=== PATIENT | male | born 1995 | race African-American/Black ===

== ENCOUNTER 2016-12-12 13:35 | Emergency (ER) | payer BC ==
[2016-12-12] MEDS ORDERED: DOXYCYCLINE HYCLATE 100 MG TABLET PO ONE (15:38)
--- NOTE | 2016-12-12 16:22 | ER Document Report ---
HPI - HPI Patient complains to provider of: tremor Onset/Duration: Gradual Quality of pain: No pain Pain Level: 0 Context: testing for lyme disease, bit by a tic 1 year ago with rash tremor in both hands Associated Symptoms: None Exacerbated by: Denies Relieved by: Denies - DERM Skin Color: Normal Past Medical History - Social History Smoking Status: Never Smoker Chew tobacco use (# tins/day): No Frequency of alcohol use: None Drug Abuse: None Family History: Reviewed & Not Pertinent Patient has suicidal ideation: No Patient has homicidal ideation: No - Past Medical History Cardiac Medical History: Denies: Hx Heart Attack, Hx Hypertension Pulmonary Medical History: Denies: Hx Asthma Neurological Medical History: Denies: Hx Cerebrovascular Accident, Hx Seizures Renal/ Medical History: Denies: Hx Peritoneal Dialysis GI Medical History: Denies: Hx Hepatitis, Hx Hiatal Hernia, Hx Ulcer Infectious Medical History: Denies: Hx Hepatitis Past Surgical History: Reports: Hx Tonsillectomy. Denies: Hx Open Heart Surgery , Hx Pacemaker Vertical Provider Document - CONSTITUTIONAL Agree With Documented VS: Yes Exam Limitations: No Limitations General Appearance: WD/WN, No Apparent Distress - INFECTION CONTROL TRAVEL OUTSIDE OF THE [place] IN LAST 30 DAYS: No - RESPIRATORY Respiratory: Breath Sounds Normal, No Respiratory Distress, Chest Non-Tender O2 Sat by Pulse Oximetry: 98 - CARDIOVASCULAR Cardiovascular: Regular Rate, Regular Rhythm, No Murmur Pulses: Normal: Radial, Dorsalis pedis - MUSCULOSKELETAL/EXTREMETIES Musculoskeletal/Extremeties: MAEW, FROM, Non-Tender, No Edema Notes: Evidence of mild resting tremor without any weakness or decreased range of motion. No evidence of arthritis. - NEURO Level of Consciousness: Awake, Alert, Appropriate Motor/Sensory: No Motor Deficit, No Sensory Deficit - DERM Integumentary: Warm, Dry, No Rash Course - Re-evaluation Re-evalutation: 12/12/16 22:27 Patient is a 21-year-old male who presents for testing for Lyme disease was bitten 1 year ago by a tic with presentation of a target rash has not followed up with primary care since then. Lyme titer sent and patient initiated on doxycycline with instruction to follow-up with primary care. - Vital Signs Vital signs: Temp Pulse Resp BP Pulse Ox 98.2 F 62 18 122/80 98 12/12/16 14:06 12/12/16 14:06 12/12/16 14:06 12/12/16 14:06 12/12/16 14:06 Discharge - Discharge Clinical Impression: visit for lyme disease testing Condition: Good Disposition: HOME, SELF-CARE Instructions: Lyme Disease ([facility]), Doxycycline ([facility]) Prescriptions: Doxycycline Hyclate 100 mg PO BID #14 capsule Referrals: [facility] [Provider Group] - Follow up as needed
[2016-12-12 16:50] VITALS: BP 118/74
[2016-12-17 07:29] LABS: LYME DISEASE IGG AND IGM AB <0.91 ISR (0.00-0.90)
== END 2016-12-12 16:50 | disposition home or self-care (01) ==
LOC: ER 13:35
DX: Z11.8 Encounter for screening for other infectious and parasitic diseases (principal); R25.1 Tremor, unspecified; R21 Rash and other nonspecific skin eruption
CPT/HCPCS: 36415; 86617; 86618; 99283